=== PATIENT | female | born 1990 | race African-American/Black ===

== ENCOUNTER 2017-01-25 23:04 | Emergency (ER) | payer OTHER ==
[~2017-01-25] VITALS: Ht 172.7 cm; Wt 138.3 kg
[~2017-01-25 23:04] MED LIST: CIPROFLOXACIN500 M1 PO; IBUPROFEN 800800 MG PO; NAPROSYN500 MG PO; NOHOMEMEDICATIONS; NORCO 5-325 TA1 EACH PO; PROMETHAZINE-C120 ML PO; TUSSIONEX PENN473 ML PO; VENTOLIN HFA 1818 GM INH; ZPAK PO
[2017-01-25 23:52] LABS: URINE BILIRUBIN NEGATIVE (Negative); URINE BLOOD TRACE (Negative); URINE COLOR YELLOW; URINE GLUCOSE-RANDOM* NEGATIVE (Negative); URINE KETONES NEGATIVE (Negative); URINE NITRITE POSITIVE (Negative); URINE PROTEIN (DIPSTICK) 1+ (Negative); URINE SPECIFIC GRAVITY >= 1.030 (1.003-1.035); URINE UROBILINOGEN 0.2 E.U./dl (0.2-1.0)
[2017-01-26] MEDS ORDERED: KEFLEX500 MG PO (00:07)
[2017-01-26 00:08] LABS: SQUAMOUS 4-10 Moderate /LPF (0-3)
[2017-01-26 00:09] LABS: BACTERIA >30 Many /HPF (None Seen); CASTS None Seen /LPF (None Seen); CRYSTALS None Seen /LPF (None Seen); URINE RBC 0-2 Rare /HPF (0-2); URINE WBC 0-5 Rare /HPF (0-5)
[2017-01-26] MEDS ORDERED: DIFLUCAN200 MG PO (00:11)
[2017-01-26 00:31] VITALS: BP 138/76
== END 2017-01-26 00:32 | disposition home or self-care (01) ==
LOC: ER 23:04
PROVIDERS: Physician Assistant
DX: Z32.01 Encounter for pregnancy test, result positive (principal); O23.41 Unspecified infection of urinary tract in pregnancy, first trimester; O26.891 Other specified pregnancy related conditions, first trimester; R11.0 Nausea; N89.8 Other specified noninflammatory disorders of vagina; Z3A.01 Less than 8 weeks gestation of pregnancy; J45.909 Unspecified asthma, uncomplicated; Z88.5 Allergy status to narcotic agent

== ENCOUNTER 2020-05-02 02:33 | Emergency (ER) | payer OTHER | END 2020-05-02 06:12 | disposition home or self-care (01) | LOC: ER 02:33 | DX: O26.891 Other specified pregnancy related conditions, first trimester (principal); N89.8 Other specified noninflammatory disorders of vagina; R42 Dizziness and giddiness; R10.32 Left lower quadrant pain; R10.13 Epigastric pain; O99.511 Diseases of the respiratory system complicating pregnancy, first trimester; J45.909 Unspecified asthma, uncomplicated; O99.351 Diseases of the nervous system complicating pregnancy, first trimester; G43.909 Migraine, unspecified, not intractable, without status migrainosus; Z3A.01 Less than 8 weeks gestation of pregnancy; Z79.899 Other long term (current) drug therapy; Z88.5 Allergy status to narcotic agent ==

== ENCOUNTER 2021-07-08 15:41 | Emergency (ER) | payer OTHER ==
[~2021-07-08] VITALS: Ht 172.7 cm; Wt 132.4 kg
[~2021-07-08 15:41] MED LIST changes: +DIFLUCAN200 MG PO; +KEFLEX500 MG PO
[2021-07-08] MEDS ORDERED: XARELTO10 M1 PO (15:45)
[2021-07-08] MEDS ORDERED: METFORMIN HCL850 MG PO (15:46)
[2021-07-08 16:01] LABS: URINE BILIRUBIN NEGATIVE (Negative); URINE BLOOD NEGATIVE (Negative); URINE CLARITY CLEAR; URINE COLOR YELLOW; URINE GLUCOSE-RANDOM* NEGATIVE (Negative); URINE KETONES NEGATIVE (Negative); URINE LEUKOCYTES-REFLEX TRACE (Negative); URINE NITRITE-REFLEX NEGATIVE (Negative); URINE PROTEIN (DIPSTICK) NEGATIVE (Negative); URINE SPECIFIC GRAVITY 1.025 (1.005-1.035); URINE UROBILINOGEN 0.2 E.U./dl (0.2-1.0)
[2021-07-08 16:04] VITALS: BP 134/82
[2021-07-08 17:18] LABS: ABSOLUTE NEUTROPHILS 2.5 thou/uL (1.4-8.2); BASOPHILS 0.8 % (0.0-2.0); EOSINOPHILS 1.7 % (0.0-3.0); HEMATOCRIT 34.6 % (37.0-47.0); HEMOGLOBIN 10.9 gm/dL (12.0-15.0); LYMPHOCYTES 48.3 % (24.0-44.0); MCH 24.3 pg (26.0-34.0); MCHC 31.5 g/dL (28.0-37.0); MCV 77.3 fL (80.0-100.0); MONOCYTES 8.9 % (1.0-8.0); PLATELET COUNT 352 thou/uL (150-400); POLYS 40.3 % (36.0-66.0); RBC 4.48 mil/uL (4.20-5.00); RDW 18.2 % (10.5-14.5); WBC 6.1 thou/uL (4.0-11.0)
[2021-07-08 17:23] LABS: CALCIUM 8.9 mg/dL (8.5-10.1); POTASSIUM 3.8 mmol/L (3.5-5.1)
[2021-07-08] MEDS ORDERED: METROGEL60 GM VAG (17:59)
[2021-07-08 18:27] LABS: ANISOCYTOSIS 2+; MACROCYTES FEW
== END 2021-07-08 18:16 | disposition home or self-care (01) ==
LOC: ER 15:41
PROVIDERS: Emergency Medicine; Nurse Practitioner
DX: O23.591 Infection of other part of genital tract in pregnancy, first trimester (principal); B96.89 Other specified bacterial agents as the cause of diseases classified elsewhere; J45.909 Unspecified asthma, uncomplicated; G43.909 Migraine, unspecified, not intractable, without status migrainosus; Z3A.01 Less than 8 weeks gestation of pregnancy; Z90.49 Acquired absence of other specified parts of digestive tract; Z88.6 Allergy status to analgesic agent